=== PATIENT | male | born 1945 | race Caucasian/White ===

== ENCOUNTER 2019-09-24 12:31 | Inpatient (IN) ==
[2019-09-24] MEDS ORDERED: ceFAZolin 1,000 MG in Water for inj. (sterile) 10 ML IVP ONE (12:51)
[2019-09-24] MEDS ORDERED: Td (TENIVAC) Vaccine 0.5 ML VIAL IM ONE (12:51)
[2019-09-24] MEDS ORDERED: Neosporin OINT 1 APPL PACKET TP ONE (12:53)
[2019-09-24] MEDS ORDERED: Lidocaine/EPI 1:100k 1% 20 ML VIAL INFILT ONE (12:53)
[2019-09-24 13:44] LABS: Basophils % 0.4 %; Eosinophils # 0.3 K/mcL (0.0-0.6); Eosinophils % 4.5 %; Hematocrit 28.5 % (37.5-50.1); Hemoglobin 9.5 g/dL (12.9-16.9); Lymphocytes # 0.6 K/mcL (0.6-4.6); Lymphocytes % 10.8 %; Mean Corpuscular HGB Conc 33.3 g/dL (31.6-35.5); Mean Corpuscular Hemoglobin 29.4 pg (28.0-33.3); Mean Corpuscular Volume 88.2 fL (83.0-100.0); Mean Platelet Volume 9.2 fL (9.4-12.4); Monocytes # 0.7 K/mcL (0.0-1.3); Monocytes % 11.6 %; Neutrophils # 4.1 K/mcL (1.6-8.9); Platelet Count 149 K/mcL (140-400); Red Blood Count 3.23 M/mcL (4.19-5.50); Red Cell Distribution Width 15.4 % (11.5-14.5); Segmented Neutrophils % 72.7 %; White Blood Count 5.6 K/mcL (4.3-11.1)
[2019-09-24 13:50] LABS: Prothrombin Time 22.9 Seconds (9.4-12.1)
[2019-09-24] MEDS ORDERED: Morphine Sulfate 2 MG/ML SYRINGE IVP ONE (13:50)
[2019-09-24 13:57] LABS: Bilirubin,Total 1.4 mg/dL (0.3-1.0); Calcium 9.9 mg/dL (8.6-10.3); Globulin 4.2 g/dL (2.4-3.5); Potassium 3.1 mEq/L (3.5-5.1); Total Protein 8.2 g/dL (6.4-8.9)
[2019-09-24] MEDS ORDERED: *HR* OxyCODONE/APAP 10/325 TABLET PO ONE (13:59)
[2019-09-24] MEDS ORDERED: Naloxone 0.4 MG/ML INJ IVP PRN ×2 (16:45)
[2019-09-24] MEDS ORDERED: Ondansetron ODT 4 MG TAB.RAPDIS SL PRN (16:45)
[2019-09-24] MEDS ORDERED: *HR* LORazepam 1 MG TABLET PO PRN (16:45)
[2019-09-24] MEDS ORDERED: Nitroglycerin 0.4 MG TAB.SUBL SL SCH (16:45)
[2019-09-24] MEDS ORDERED: Mag Hydrox/Al Hydrox/Simeth 30 ML UDC PO PRN (16:45)
[2019-09-24] MEDS ORDERED: Bumetanide 1 MG TABLET PO SCH (17:00)
[2019-09-24] MEDS ORDERED: Nitroglycerin 0.4 MG TAB.SUBL SL PRN (17:30)
[2019-09-24] MEDS ORDERED: *HR* Warfarin 3 MG TABLET PO SCH (18:00)
[2019-09-24] MEDS ORDERED: Melatonin 3 MG TABLET PO PRN (19:58)
[2019-09-24] MEDS: *HR* LORazepam 1 MG TABLET PO SCH (23:11)
[2019-09-24] MEDS: ceFAZolin 2,000 MG in 0.9 % Sodium Chloride 100 ML IVPB SCH (23:11)
[2019-09-24] MEDS: Melatonin 3 MG TABLET PO PRN (23:55)
[2019-09-25 05:31] LABS: Basophils % 0.4 %; Eosinophils # 0.2 K/mcL (0.0-0.6); Eosinophils % 3.8 %; Hematocrit 26.6 % (37.5-50.1); Hemoglobin 8.6 g/dL (12.9-16.9); Immature Granulocytes % 0.2 % (0-4); Lymphocytes # 0.6 K/mcL (0.6-4.6); Lymphocytes % 11.3 %; Mean Corpuscular HGB Conc 32.3 g/dL (31.6-35.5); Mean Corpuscular Hemoglobin 28.8 pg (28.0-33.3); Mean Platelet Volume 8.8 fL (9.4-12.4); Monocytes # 0.7 K/mcL (0.0-1.3); Monocytes % 12.8 %; Platelet Count 126 K/mcL (140-400); Red Blood Count 2.99 M/mcL (4.19-5.50); Red Cell Distribution Width 15.4 % (11.5-14.5); Segmented Neutrophils % 71.5 %; White Blood Count 5.6 K/mcL (4.3-11.1)
[2019-09-25 05:46] LABS: Calcium 9.1 mg/dL (8.6-10.3); Potassium 3.4 mEq/L (3.5-5.1)
[2019-09-25] MEDS: *HR* OxyCODONE Immed Rel 5 MG TABLET PO PRN (08:54)
[2019-09-25] MEDS: Metoprolol XL (24 HR) Succ 25 MG TAB.ER.24H PO SCH (08:55)
[2019-09-25] MEDS: Finasteride 5 MG TABLET PO SCH (08:55)
[2019-09-25] MEDS: ceFAZolin 2,000 MG in 0.9 % Sodium Chloride 100 ML IVPB SCH (08:55)
[2019-09-25] MEDS: Cyanocobalamin (B-12) 1,000 MCG TABLET PO SCH (08:55)
[2019-09-25] MEDS: Sennosides/Docusate Sodium TABLET PO SCH (08:55)
[2019-09-25] MEDS ORDERED: metOLazone 5 MG TABLET PO SCH (09:00)
[2019-09-25] MEDS: Bumetanide 1 MG TABLET PO SCH ×2 (10:55→16:59)
[2019-09-25] MEDS: metOLazone 5 MG TABLET PO SCH (13:11)
[2019-09-25] MEDS: CeFAZolin 2 GM/120 ML BAG IVPB SCH ×2 (16:58→23:55)
[2019-09-25] MEDS: *HR* Warfarin 3 MG TABLET PO SCH (16:59)
[2019-09-25] MEDS ORDERED: Furosemide 40 MG/4 ML VIAL IVP ONE (20:58)
[2019-09-25] MEDS: *HR* LORazepam 1 MG TABLET PO SCH (21:29)
[2019-09-25] MEDS: Melatonin 3 MG TABLET PO PRN (21:29)
[2019-09-26 05:46] LABS: Basophils % 0.5 %; Eosinophils # 0.3 K/mcL (0.0-0.6); Eosinophils % 4.6 %; Hematocrit 29.2 % (37.5-50.1); Hemoglobin 9.7 g/dL (12.9-16.9); Immature Granulocytes % 0.3 % (0-4); Lymphocytes # 0.8 K/mcL (0.6-4.6); Lymphocytes % 12.3 %; Mean Corpuscular HGB Conc 33.2 g/dL (31.6-35.5); Mean Corpuscular Hemoglobin 29.3 pg (28.0-33.3); Mean Corpuscular Volume 88.2 fL (83.0-100.0); Monocytes # 0.7 K/mcL (0.0-1.3); Monocytes % 11.7 %; Neutrophils # 4.5 K/mcL (1.6-8.9); Platelet Count 143 K/mcL (140-400); Red Blood Count 3.31 M/mcL (4.19-5.50); Red Cell Distribution Width 15.4 % (11.5-14.5); Segmented Neutrophils % 70.6 %; White Blood Count 6.3 K/mcL (4.3-11.1)
[2019-09-26 05:48] LABS: INR 2.4
[2019-09-26 05:59] LABS: Calcium 9.7 mg/dL (8.6-10.3)
[2019-09-26] MEDS: Metoprolol XL (24 HR) Succ 25 MG TAB.ER.24H PO SCH (08:06)
[2019-09-26] MEDS: Sennosides/Docusate Sodium TABLET PO SCH (08:06)
[2019-09-26] MEDS: Cyanocobalamin (B-12) 1,000 MCG TABLET PO SCH (08:06)
[2019-09-26] MEDS: Bumetanide 1 MG TABLET PO SCH ×2 (08:07→17:10)
[2019-09-26] MEDS: Finasteride 5 MG TABLET PO SCH (08:07)
[2019-09-26] MEDS: CeFAZolin 2 GM/120 ML BAG IVPB SCH ×3 (08:07→23:20)
[2019-09-26] MEDS ORDERED: Sennosides/Docusate Sodium TABLET PO ONE (12:03)
[2019-09-26] MEDS: *HR* Warfarin 3 MG TABLET PO SCH (17:09)
[2019-09-26] MEDS: *HR* OxyCODONE Immed Rel 5 MG TABLET PO PRN (18:35)
[2019-09-26] MEDS: Melatonin 3 MG TABLET PO PRN (22:46)
[2019-09-26] MEDS: *HR* LORazepam 1 MG TABLET PO SCH (22:46)
[2019-09-27 05:50] LABS: INR 2.6; Prothrombin Time 29.9 Seconds (9.4-12.1)
[2019-09-27] MEDS: Finasteride 5 MG TABLET PO SCH (09:24)
[2019-09-27] MEDS: Metoprolol XL (24 HR) Succ 25 MG TAB.ER.24H PO SCH (09:24)
[2019-09-27] MEDS: metOLazone 5 MG TABLET PO SCH (09:24)
[2019-09-27] MEDS: Bumetanide 1 MG TABLET PO SCH ×2 (09:24→16:28)
[2019-09-27] MEDS: Sennosides/Docusate Sodium TABLET PO SCH (09:24)
[2019-09-27] MEDS: Cyanocobalamin (B-12) 1,000 MCG TABLET PO SCH (09:24)
[2019-09-27] MEDS: CeFAZolin 2 GM/120 ML BAG IVPB SCH ×2 (09:26→16:29)
[2019-09-27] MEDS ORDERED: Sennosides/Docusate Sodium TABLET PO ONE (11:37)
[2019-09-27] MEDS: *HR* OxyCODONE Immed Rel 5 MG TABLET PO PRN ×2 (14:04→21:35)
[2019-09-27] MEDS: *HR* Warfarin 3 MG TABLET PO SCH (16:29)
[2019-09-27] MEDS: Melatonin 3 MG TABLET PO PRN (21:33)
[2019-09-27] MEDS: *HR* LORazepam 1 MG TABLET PO SCH (21:34)
[2019-09-28] MEDS: CeFAZolin 2 GM/120 ML BAG IVPB SCH ×2 (00:25→08:58)
[2019-09-28 06:18] LABS: Basophils % 0.6 %; Eosinophils # 0.3 K/mcL (0.0-0.6); Eosinophils % 4.4 %; Hematocrit 29.3 % (37.5-50.1); Hemoglobin 9.9 g/dL (12.9-16.9); Immature Granulocytes % 0.4 % (0-4); Lymphocytes # 0.8 K/mcL (0.6-4.6); Lymphocytes % 10.7 %; Mean Corpuscular HGB Conc 33.8 g/dL (31.6-35.5); Mean Corpuscular Hemoglobin 29.5 pg (28.0-33.3); Mean Corpuscular Volume 87.2 fL (83.0-100.0); Mean Platelet Volume 8.6 fL (9.4-12.4); Monocytes # 0.9 K/mcL (0.0-1.3); Monocytes % 12.7 %; Neutrophils # 5.1 K/mcL (1.6-8.9); Platelet Count 151 K/mcL (140-400); Red Blood Count 3.36 M/mcL (4.19-5.50); Red Cell Distribution Width 15.1 % (11.5-14.5); Segmented Neutrophils % 71.2 %; White Blood Count 7.2 K/mcL (4.3-11.1)
[2019-09-28 06:21] LABS: INR 2.8; Prothrombin Time 31.5 Seconds (9.4-12.1)
[2019-09-28 07:31] LABS: Calcium 9.2 mg/dL (8.6-10.3); Potassium 2.9 mEq/L (3.5-5.1)
[2019-09-28] MEDS: Bumetanide 1 MG TABLET PO SCH (08:58)
[2019-09-28] MEDS: Finasteride 5 MG TABLET PO SCH (08:58)
[2019-09-28] MEDS: Metoprolol XL (24 HR) Succ 25 MG TAB.ER.24H PO SCH (08:59)
[2019-09-28] MEDS: Sennosides/Docusate Sodium TABLET PO SCH (08:59)
[2019-09-28] MEDS: Cyanocobalamin (B-12) 1,000 MCG TABLET PO SCH (08:59)
[2019-09-28 09:01] VITALS: BP 117/71
== END 2019-09-28 13:23 | disposition home health service (06) | DRG 603 ==
LOC: EMEROOGRE 12:31 → INPGRE 16:39
PROVIDERS: ADMIT Family Medicine; ATTEND Family Medicine

== ENCOUNTER 2020-06-01 19:43 | Inpatient (IN) ==
[2020-06-01] MEDS ORDERED: Vancomycin 1,000 MG VIAL IVPB ONE (19:59)
[2020-06-01 20:21] LABS: Basophils % 0.5 %; Eosinophils # 0.2 K/mcL (0.0-0.6); Eosinophils % 2.5 %; Hematocrit 30.9 % (37.5-50.1); Hemoglobin 9.6 g/dL (12.9-16.9); Immature Granulocytes % 0.2 % (0-4); Lymphocytes # 0.5 K/mcL (0.6-4.6); Lymphocytes % 7.8 %; Mean Corpuscular HGB Conc 31.1 g/dL (31.6-35.5); Mean Corpuscular Hemoglobin 27.9 pg (28.0-33.3); Mean Corpuscular Volume 89.8 fL (83.0-100.0); Mean Platelet Volume 9.6 fL (9.4-12.4); Monocytes # 0.5 K/mcL (0.0-1.3); Monocytes % 8.1 %; Neutrophils # 5.2 K/mcL (1.6-8.9); Platelet Count 189 K/mcL (140-400); Red Blood Count 3.44 M/mcL (4.19-5.50); Red Cell Distribution Width 16.7 % (11.5-14.5); Segmented Neutrophils % 80.9 %; White Blood Count 6.4 K/mcL (4.3-11.1)
[2020-06-01 20:27] LABS: INR 4.1
[2020-06-01 20:31] LABS: Prothrombin Time 45.7 Seconds (9.4-12.1)
[2020-06-01 20:38] LABS: Albumin 4.2 g/dL (3.5-5.7); Albumin/Globulin Ratio 0.9 (1.1-2.2); Bilirubin,Total 1.2 mg/dL (0.3-1.0); Calcium 9.5 mg/dL (8.6-10.3); Globulin 4.5 g/dL (2.4-3.5); Potassium 3.7 mEq/L (3.5-5.1); Total Protein 8.7 g/dL (6.4-8.9)
[2020-06-01] MEDS ORDERED: *HR* OxyCODONE/APAP 10/325 TABLET PO PRN (21:27)
[2020-06-01] MEDS ORDERED: Naloxone 0.4 MG/ML INJ IVP PRN (21:27)
[2020-06-01] MEDS ORDERED: Nitroglycerin 0.4 MG TAB.SUBL SL SCH (21:30)
[2020-06-01] MEDS ORDERED: Nitroglycerin 0.4 MG TAB.SUBL SL PRN (22:27)
[2020-06-01] MEDS: Ampicillin/Sulbactam 1,500 MG in 0.9 % Sodium Chloride Mini Bag 100 ML IVPB SCH (23:12)
[2020-06-01] MEDS: Melatonin 3 MG TABLET PO PRN (23:13)
[2020-06-01] MEDS: *HR* LORazepam 1 MG TABLET PO SCH (23:13)
[2020-06-02 04:47] LABS: Prothrombin Time 48.9 Seconds (9.4-12.1)
[2020-06-02 04:48] LABS: INR 4.4
[2020-06-02] MEDS ORDERED: *HR* Warfarin 3 MG TABLET PO SCH (09:00)
[2020-06-02] MEDS: Metoprolol XL (24 HR) Succ 25 MG TAB.ER.24H PO SCH (09:31)
[2020-06-02] MEDS: Bumetanide 1 MG TABLET PO SCH ×2 (09:31→17:20)
[2020-06-02] MEDS: Cyanocobalamin (B-12) 1,000 MCG TABLET PO SCH (09:32)
[2020-06-02] MEDS: Ampicillin/Sulbactam 1,500 MG in 0.9 % Sodium Chloride Mini Bag 100 ML IVPB SCH ×2 (09:32→22:30)
[2020-06-02] MEDS: Finasteride 5 MG TABLET PO SCH (09:32)
[2020-06-02] MEDS ORDERED: Warfarin perPT PO PRN (18:00)
[2020-06-02] MEDS ORDERED: *HR* Warfarin 1 MG TABLET PO ONE (18:00)
[2020-06-02] MEDS: *HR* LORazepam 1 MG TABLET PO SCH (22:29)
[2020-06-02] MEDS: Melatonin 3 MG TABLET PO PRN (22:29)
[2020-06-03 05:02] LABS: Basophils % 0.5 %; Eosinophils # 0.2 K/mcL (0.0-0.6); Eosinophils % 4.8 %; Hematocrit 26.6 % (37.5-50.1); Hemoglobin 8.4 g/dL (12.9-16.9); INR 3.4; Immature Granulocytes % 0.2 % (0-4); Lymphocytes # 0.7 K/mcL (0.6-4.6); Lymphocytes % 15.6 %; Mean Corpuscular HGB Conc 31.6 g/dL (31.6-35.5); Mean Corpuscular Hemoglobin 28.1 pg (28.0-33.3); Monocytes # 0.5 K/mcL (0.0-1.3); Monocytes % 10.8 %; Platelet Count 123 K/mcL (140-400); Prothrombin Time 37.9 Seconds (9.4-12.1); Red Blood Count 2.99 M/mcL (4.19-5.50); Red Cell Distribution Width 16.7 % (11.5-14.5); Segmented Neutrophils % 68.1 %; White Blood Count 4.4 K/mcL (4.3-11.1)
[2020-06-03 05:14] LABS: Calcium 9.3 mg/dL (8.6-10.3); Potassium 3.4 mEq/L (3.5-5.1)
[2020-06-03] MEDS ORDERED: Perflutren Lipid Microsphere 1.3 ML in 0.9 % Sodium Chloride 8.7 ML IVP PRN ×2 (08:43→17:13)
[2020-06-03] MEDS: Bumetanide 1 MG TABLET PO SCH (08:45)
[2020-06-03] MEDS: Cyanocobalamin (B-12) 1,000 MCG TABLET PO SCH (08:56)
[2020-06-03] MEDS: Finasteride 5 MG TABLET PO SCH (08:56)
[2020-06-03] MEDS: Metoprolol XL (24 HR) Succ 25 MG TAB.ER.24H PO SCH ×2 (08:56→23:01)
[2020-06-03] MEDS ORDERED: metOLazone 5 MG TABLET PO SCH (09:00)
[2020-06-03] MEDS ORDERED: Vancomycin (wt based) 1,000 MG VIAL IVPB SCH (09:00)
[2020-06-03] MEDS ORDERED: Vancomycin 500 MG in 0.9 % Sodium Chloride Mini Bag 100 ML IVPB ONE (10:00)
[2020-06-03] MEDS: Ampicillin/Sulbactam 1,500 MG in 0.9 % Sodium Chloride Mini Bag 100 ML IVPB SCH ×3 (10:17→23:02)
[2020-06-03] MEDS ORDERED: *HR* Warfarin 3 MG TABLET PO ONE (18:00)
[2020-06-03] MEDS: *HR* LORazepam 1 MG TABLET PO PRN (23:01)
[2020-06-03] MEDS: Sennosides 8.6 MG TABLET PO PRN (23:02)
[2020-06-03] MEDS: Melatonin 3 MG TABLET PO PRN (23:02)
[2020-06-04] MEDS: *HR* OxyCODONE/APAP 10/325 TABLET PO PRN ×2 (00:37→20:52)
[2020-06-04 04:56] LABS: INR 3.1; Prothrombin Time 34.7 Seconds (9.4-12.1)
[2020-06-04 05:08] LABS: Calcium 8.8 mg/dL (8.6-10.3); Potassium 4.1 mEq/L (3.5-5.1)
[2020-06-04] MEDS: Ampicillin/Sulbactam 1,500 MG in 0.9 % Sodium Chloride Mini Bag 100 ML IVPB SCH ×3 (05:34→16:22)
[2020-06-04] MEDS: Cyanocobalamin (B-12) 1,000 MCG TABLET PO SCH (09:02)
[2020-06-04] MEDS: Finasteride 5 MG TABLET PO SCH (09:02)
[2020-06-04] MEDS: Vancomycin 1,250 MG/262.5 ML IV.SOLN IVPB SCH (09:02)
[2020-06-04] MEDS: Metoprolol XL (24 HR) Succ 25 MG TAB.ER.24H PO SCH ×2 (09:02→20:52)
[2020-06-04] MEDS ORDERED: *HR* Warfarin 3 MG TABLET PO ONE (18:00)
[2020-06-04] MEDS: Melatonin 3 MG TABLET PO PRN (20:51)
[2020-06-04] MEDS: *HR* LORazepam 1 MG TABLET PO PRN (20:52)
[2020-06-04] MEDS: Sennosides 8.6 MG TABLET PO PRN (20:52)
[2020-06-05] MEDS: Ampicillin/Sulbactam 1,500 MG in 0.9 % Sodium Chloride Mini Bag 100 ML IVPB SCH ×4 (00:05→17:01)
[2020-06-05 09:16] LABS: INR 2.9; Prothrombin Time 32.2 Seconds (9.4-12.1)
[2020-06-05 09:19] LABS: Basophils % 0.6 %; Eosinophils # 0.2 K/mcL (0.0-0.6); Eosinophils % 3.9 %; Hemoglobin 8.8 g/dL (12.9-16.9); Immature Granulocytes % 0.2 % (0-4); Lymphocytes # 0.6 K/mcL (0.6-4.6); Lymphocytes % 10.3 %; Mean Corpuscular HGB Conc 31.4 g/dL (31.6-35.5); Mean Corpuscular Hemoglobin 28.1 pg (28.0-33.3); Mean Corpuscular Volume 89.5 fL (83.0-100.0); Mean Platelet Volume 8.9 fL (9.4-12.4); Monocytes # 0.6 K/mcL (0.0-1.3); Monocytes % 10.3 %; Platelet Count 145 K/mcL (140-400); Red Blood Count 3.13 M/mcL (4.19-5.50); Red Cell Distribution Width 16.7 % (11.5-14.5); Segmented Neutrophils % 74.7 %; White Blood Count 5.3 K/mcL (4.3-11.1)
[2020-06-05 09:23] LABS: Calcium 8.9 mg/dL (8.6-10.3); Potassium 3.7 mEq/L (3.5-5.1)
[2020-06-05] MEDS: Finasteride 5 MG TABLET PO SCH (09:49)
[2020-06-05] MEDS: Metoprolol XL (24 HR) Succ 25 MG TAB.ER.24H PO SCH (09:49)
[2020-06-05] MEDS: Cyanocobalamin (B-12) 1,000 MCG TABLET PO SCH (09:49)
[2020-06-05] MEDS: Vancomycin 1,250 MG/262.5 ML IV.SOLN IVPB SCH (10:15)
[2020-06-05 16:54] LABS: Magnesium 1.7 mg/dL (1.6-2.6); Phosphorous 3.2 mg/dL (2.7-4.5)
[2020-06-05] MEDS ORDERED: *HR* Warfarin 3 MG TABLET PO ONE (18:00)
[2020-06-05 19:07] VITALS: BP 151/82
== END 2020-06-05 18:45 | disposition short-term general hospital (02) | DRG 603 ==
LOC: INPGRE 19:43 → EMEROOGRE 19:43 → INPGRE 21:45
PROVIDERS: ADMIT Family Medicine; ATTEND Family Medicine